=== PATIENT | male | born 1940 | race Caucasian/White ===

== ENCOUNTER 2020-11-03 15:23 | Outpatient (CLI) | payer MEDICARE | END 2020-11-03 15:24 | disposition home or self-care (01) | LOC: BICRAD 15:23 | PROVIDERS: ATTEND Student in an Organized Health Care Education/Training Program | DX: M54.5 Low back pain (principal); M47.816 Spondylosis without myelopathy or radiculopathy, lumbar region; I71.4 Abdominal aortic aneurysm, without rupture | CPT/HCPCS: 72100 ==